=== PATIENT | male | born 1950 | race Caucasian/White ===

== ENCOUNTER → 2018-04-02 | Outpatient (CLI) | payer MEDICARE ==
--- NOTE | 2018-04-02 11:08 | RADIOLOGY REPORT (SQ) ---
EXAM DESCRIPTION: CT CHEST WITHOUT COMPLETED DATE/TIME: 04/02/2018 10:02 am REASON FOR STUDY: DYSPNEA R06.00 DYSPNEA, UNSPECIFIED COMPARISON: None. TECHNIQUE: CT scan performed of the chest without intravenous contrast. Images reviewed with lung, soft tissue and bone windows. Reconstructed coronal and sagittal MPR images reviewed. All images st ored on PACS. All CT scanners at this facility use dose modulation, iterative reconstruction, and/or weight based d osing when appropriate to reduce radiation dose to as low as reasonably achievable (ALARA). [facility]: Dose Right [facility]: CareDose [facility]: Dose Right [facility]: Teradose 4D [facility]: Smart [employer] RADIATION DOSE: CT Rad equipment meets quality standard of care and radiation dose reduction techniq ues were employed. CTDIvol: 6.2 mGy. DLP: 237 mGy-cm. mGy. LIMITATIONS: No technical limitations. FINDINGS: LUNGS AND PLEURA: No masses, infiltrates, or pneumothorax. No pleural effusions or pleura l calcifications. HILAR AND MEDIASTINAL STRUCTURES: There are a few small nonspecific mediastinal nodes. No mediastina l or hilar masses. HEART AND VASCULAR STRUCTURES: No aneurysm. No pericardial effusion. UPPER ABDOMEN: A small gallstone is present. THYROID AND OTHER SOFT TISSUES: No masses. No adenopathy. BONES: No significant finding. HARDWARE: None in the chest. OTHER: No other significant findings. IMPRESSION: There are scattered nonspecific mediastinal nodes. No acute findings are seen in the th orax. Cholelithiasis. TECHNICAL DOCUMENTATION: JOB ID: [id number] Quality ID # [id number]: Final reports with documentation of one or more dose reduction techniques (e.g., Au tomated exposure control, adjustment of the mA and/or kV according to patient size, use of iterative reconstruction technique) 2010 [employer]- All Rights Reserved Reading location - IP/workstation name: [email or web address]
== END ==
LOC: RAD 09:52
PROVIDERS: ATTEND Internal Medicine Pulmonary Disease
DX: K80.20 Calculus of gallbladder without cholecystitis without obstruction (principal); R06.00 Dyspnea, unspecified
CPT/HCPCS: 71250

== ENCOUNTER 2018-11-30 13:16 | Emergency (ER) | payer MEDICARE ==
--- NOTE | 2018-11-30 13:32 | ER Document Report ---
ED Medical Screen (RME) - General Chief Complaint: Leg Pain Stated Complaint: ABDOMINAL PAIN Time Seen by Provider: 11/30/18 13:25 Primary Care Provider: BHAVNA CASTELLANOS MD [Primary Care Provider] - Follow up as needed Mode of Arrival: Wheelchair Information source: Patient Notes: 68-year-old male presents with left thigh pain post being on Thursday. Patient has ecchymosis and swelling. Patient takes BC powders. Denies anticoagulants. Patient has good pedal pulse good cap refill. History of brain aneurysm 10 years ago. I have greeted and performed a rapid initial assessment of this patient. A comprehensive ED assessment and evaluation of the patient, analysis of test results and completion of the medical decision making process will be conducted by additional ED providers. Dictation of this chart was performed using voice recognition software; therefore, there may be some unintended grammatical errors. TRAVEL OUTSIDE OF THE [place] IN LAST 30 DAYS: No - Related Data Allergies/Adverse Reactions: No Known Allergies Allergy (Verified 11/30/18 13:24) Past Medical History - Social History Chew tobacco use (# tins/day): No Frequency of alcohol use: None Physical Exam - Vital signs Vitals: Temp Pulse Resp BP Pulse Ox 98.4 F 87 16 147/78 H 95 11/30/18 13:23 11/30/18 13:23 11/30/18 13:23 11/30/18 13:23 11/30/18 13:23 Course - Vital Signs Vital signs: Temp Pulse Resp BP Pulse Ox 98.4 F 87 16 147/78 H 95 11/30/18 13:23 11/30/18 13:23 11/30/18 13:23 11/30/18 13:23 11/30/18 13:23 Doctor's Discharge - Discharge Referrals: BHAVNA CASTELLANOS MD [Primary Care Provider] - Follow up as needed
[2018-11-30 16:30] LABS: ABSOLUTE BASOPHILS # (AUTO) 0.1 10^3/uL (0.0-0.2); ABSOLUTE EOSINOPHILS # (AUTO) 0.1 10^3/uL (0.0-0.6); ABSOLUTE LYMPHOCYTES (AUTO) 2.5 10^3/uL (0.5-4.7); ABSOLUTE MONOCYTES (AUTO) 1.2 10^3/uL (0.1-1.4); ABSOLUTE NEUT (AUTO) 7.3 10^3/uL (1.7-8.2); BASOPHILS % (AUTO) 0.8 % (0-2); EOSINOPHILS % (AUTO) 1.3 % (0-6); HEMATOCRIT 45.6 % (37.9-51.0); LYMPHOCYTES % (AUTO) 22.3 % (13-45); MEAN CORPUSCULAR HEMOGLOBIN 32.5 pg (27.0-33.4); MEAN CORPUSCULAR VOLUME 93 fl (80-97); MONOCYTES % (AUTO) 10.7 % (3-13); PLATELET COUNT 212 10^3/uL (150-450); RED BLOOD COUNT 4.92 10^6/uL (4.35-5.55); RED CELL DISTRIBUTION WIDTH 13.8 % (11.5-14.0); SEGMENTED NEUTROPHILS % (AUTO) 64.9 % (42-78); TOTAL CELLS COUNTED % (AUTO) 100 %; WHITE BLOOD COUNT 11.2 10^3/uL (4.0-10.5)
--- NOTE | 2018-11-30 16:37 | RADIOLOGY REPORT (SQ) ---
EXAM DESCRIPTION: U/S EXTREMITY NONVASCULAR LTD COMPLETED DATE/TIME: 11/30/2018 4:13 pm REASON FOR STUDY: ecchymosis pain post skiing, ? hematoma vs muscle COMPARISON: None. TECHNIQUE: Dynamic and static grayscale images acquired of the localized site of clinical concern an d recorded on PACS. Additional selected color Doppler and spectral images recorded. SITE OF CONCERN: Left leg. LIMITATIONS: None. FINDINGS: Per the casino surveillance officer's note, the patient has an area of ecchymoses that extends along the p osterior aspect of the proximal left lower extremity from the gluteal to the popliteal regions. On u ltrasound there is evidence of subcutaneous edema at the site of clinical concern ; there is no subcu taneous hematoma or other sonographic abnormality. IMPRESSION: Subcutaneous edema at the site of the clinical concern/ ecchymosis in the posterior left lower extremity. TECHNICAL DOCUMENTATION: JOB ID: [id number] [employer]- All Rights Reserved Reading location - IP/workstation name: [email or web address]
[2018-11-30 16:38] LABS: INTERNATIONAL RATION (INR) 0.96; PARTIAL THROMBOPLASTIN TIME 23.7 SEC (23.5-35.8); PROTHROMBIN TIME 12.8 SEC (11.4-15.4)
[2018-11-30 16:51] LABS: ALBUMIN 4.2 g/dL (3.5-5.0); ALKALINE PHOSPHATASE 77 U/L (38-126); ANION GAP 7 (5-19); ASPARTATE AMINO TRANSFERASE 24 U/L (17-59); BILIRUBIN,DIRECT 0.2 mg/dL (0.0-0.4); BILIRUBIN,TOTAL 0.6 mg/dL (0.2-1.3); BLOOD UREA NITROGEN 14 mg/dL (7-20); CALCIUM 9.4 mg/dL (8.4-10.2); CARBON DIOXIDE 30 mmol/L (22-30); CHLORIDE 104 mmol/L (98-107); CREATINE KINASE 177 U/L (55-170); GLUCOSE 82 mg/dL (75-110); POTASSIUM 4.4 mmol/L (3.6-5.0)
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
[2018-11-30 18:05] VITALS: BP 157/96
== END 2018-11-30 17:50 | disposition home or self-care (01) ==
LOC: ER 13:16
DX: S70.12XA Contusion of left thigh, initial encounter (principal); M79.18 Myalgia, other site; X50.0XXA Overexertion from strenuous movement or load, initial encounter; Y93.17 Activity, water skiing and wake boarding
CPT/HCPCS: 36415; 76882; 80053; 82550; 85025; 85610; 85730; 99284

== ENCOUNTER → 2019-06-02 | Outpatient (CLI) | payer MEDICARE ==
--- NOTE | 2019-06-02 10:10 | RADIOLOGY REPORT (SQ) ---
EXAM DESCRIPTION: CT CHEST WITHOUT COMPLETED DATE/TIME: 06/02/2019 9:20 am REASON FOR STUDY: R59.0 LOCALIZED ENLARGED LYMPH NODES R59.0 LOCALIZED ENLARGED LYMPH NODES COMPARISON: 04/02/2018 TECHNIQUE: CT scan performed of the chest without intravenous contrast. Images reviewed with lung, soft tissue and bone windows. Reconstructed coronal and sagittal MPR images reviewed. All images st ored on PACS. All CT scanners at this facility use dose modulation, iterative reconstruction, and/or weight based d osing when appropriate to reduce radiation dose to as low as reasonably achievable (ALARA). [facility]: Dose Right [facility]: CareDose [facility]: Dose Right [facility]: Teradose 4D [facility]: [facility] [facility] RADIATION DOSE: CT Rad equipment meets quality standard of care and radiation dose reduction techniq ues were employed. CTDIvol: 6.9 mGy. DLP: 294 mGy-cm. mGy. LIMITATIONS: No technical limitations. FINDINGS: LUNGS AND PLEURA: No consolidation. No suspicious pulmonary nodules. Noncalcified areas of pleural plaque present and unchanged from prior exam. HILAR AND MEDIASTINAL STRUCTURES: No pathologic mediastinal or hilar adenopathy. Few small stable me diastinal nodes are unchanged. HEART AND VASCULAR STRUCTURES: No aneurysm. No pericardial effusion. UPPER ABDOMEN: No significant findings. Limited exam. THYROID AND OTHER SOFT TISSUES: No thyroid lesions. Persistent asymmetric soft tissue in the left br east. Slight decrease in size since 2019 suggest benign process possibly asymmetric gynecomastia. S oft tissue lesion measures 1.5 cm and is slightly smaller when compared to 2019. Small axillary node s are present. None are pathologic based on size criteria. These are stable. BONES: No significant finding. HARDWARE: None in the chest. OTHER: No other significant findings. IMPRESSION: 1. Asymmetric soft tissue attenuation the left breast. Soft tissue lesion measures 1.5 cm compared to 1.8 cm in 2019. No gross suggest benign process possibly asymmetric gynecomastia. 2. No pathologic adenopathy. TECHNICAL DOCUMENTATION: JOB ID: [id number] Quality ID # [id number]: Final reports with documentation of one or more dose reduction techniques (e.g., Au tomated exposure control, adjustment of the mA and/or kV according to patient size, use of iterative reconstruction technique) 2010 [employer]- All Rights Reserved Reading location - IP/workstation name: [email or web address]
== END ==
LOC: RAD 09:00
PROVIDERS: ATTEND Internal Medicine Pulmonary Disease
DX: R59.0 Localized enlarged lymph nodes (principal)
CPT/HCPCS: 71250